=== PATIENT | female | born 1985 | race African-American/Black ===

== ENCOUNTER 2016-07-23 20:41 | Emergency (ER) | payer MEDICAID ==
[2016-07-23] MEDS ORDERED: ACETAMINOPHEN 325 MG TABLET PO ONE (21:40)
--- NOTE | 2016-07-23 21:41 | ER Document Report ---
ED Medical Screen (RME) - General Stated Complaint: CHEST PAIN Notes: 30 year old female, reports right sided chest pain today, also complains of right shoulder pain for over 2 months. Reports she injured her shoulder by running into a wall in May. Denies cough. Pain is sharp. Denies smoking. On menstrual cycle now. TRAVEL OUTSIDE OF THE [place] IN LAST 30 DAYS: No - Related Data Allergies/Adverse Reactions: ibuprofen Allergy (Verified 11/17/15 02:17) Generalized Itching Past Medical History - Immunizations Hx Diphtheria, Pertussis, Tetanus Vaccination: Yes Physical Exam - Respiratory Respiratory status: No respiratory distress. No: Labored, Tachypnea Breath sounds: Normal. No: Decreased air movement, Rales, Rhonchi, Stridor, Wheezing
--- NOTE | 2016-07-24 00:59 | ER Document Report ---
ED Extremity Problem, Upper - General Mode of Arrival: Ambulatory Information source: Patient TRAVEL OUTSIDE OF THE [place] IN LAST 30 DAYS: No - HPI Patient complains to provider of: Pain, Right, Shoulder Onset: Other - see above Recent injury: No Associated symptoms: Chest pain/discomfort Exacerbated by: Movement Similar symptoms previously: Yes <YAN CURRAN - Last Filed: 07/24/16 03:59> <ANAI MONROE - Last Filed: 07/24/16 06:19> - General Chief Complaint: Chest Pain Stated Complaint: CHEST PAIN Notes: Patient is a 30-year-old female that presents to the emergency department today with complaints of right shoulder pain and chest pain. Patient states she has had right shoulder pain for approximately 1 year since an accident where she injured the right shoulder. 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 Patient states she is left handed. Patient states she has noticed that the chest pain is usually associated with her shoulder pain. ( AYN CURRAN) - Related Data Allergies/Adverse Reactions: ibuprofen Allergy (Verified 11/17/15 02:17) Generalized Itching Past Medical History - General Information source: Patient - Social History Smoking Status: Never Smoker Cigarette use (# per day): No Frequency of alcohol use: Rare Drug Abuse: None Lives with: Family Family History: Reviewed & Not Pertinent Patient has suicidal ideation: No Patient has homicidal ideation: No - Medical History Medical History: Negative Surgical Hx: Negative - Immunizations Hx Diphtheria, Pertussis, Tetanus Vaccination: Yes <YAN CURRAN - Last Filed: 07/24/16 03:59> Review of Systems - Review of Systems Constitutional: No symptoms reported EENT: No symptoms reported Cardiovascular: See HPI, Chest pain Respiratory: No symptoms reported Gastrointestinal: No symptoms reported Genitourinary: No symptoms reported Female Genitourinary: No symptoms reported Musculoskeletal: See HPI, Joint pain - right shoulder Skin: No symptoms reported Hematologic/Lymphatic: No symptoms reported Neurological/Psychological: No symptoms reported -: Yes All other systems reviewed and negative <YAN CURRAN - Last Filed: 07/24/16 03:59> Physical Exam <YAN CURRAN - Last Filed: 07/24/16 03:59> <ANAI MONROE - Last Filed: 07/24/16 06:19> - Vital signs Vitals: Temp Pulse Resp BP Pulse Ox 97.9 F 63 20 134/97 H 100 07/24/16 01:37 07/24/16 01:37 07/24/16 01:37 07/24/16 01:37 07/24/16 01:37 - Notes Notes: Physical Exam: General: Alert, appears well. HEENT: Normocephalic. Atraumatic. PERRL. Extraocular movements intact. Oropharynx clear. Neck: Supple. Respiratory: No respiratory distress. Clear and equal breath sounds bilaterally. Cardiovascular: Regular rate and rhythm. Abdominal: Obese. No distension. Extremities: Pain with internal and external rotation of right shoulder, pain with abduction up to 90. Tenderness with palpation over right supraspinatus, right pectoralis, and right trapezius musculature. Pain with palpation over acromion tip. Neurological: Normal cognition. AAOx4. Normal speech. Psychological: Normal affect. Normal Mood. Skin: Warm. Dry. Normal color. (YAN UCRRAN) Course <YAN CURRAN - Last Filed: 07/24/16 03:59> - Diagnostic Test Radiology reviewed: Reports reviewed <ANAI MONROE - Last Filed: 07/24/16 06:19> - Re-evaluation Re-evalutation: 07/24/16 Patient with rotator cuff syndrome. Will be given pain medication and sling for comfort. Given a prescription for physical therapy and is to follow-up with PMD. Stable for discharge. Understands agrees with plan. Advised about frozen shoulder. (ANAI MONROE) - Vital Signs Vital signs: Temp Pulse Resp BP Pulse Ox 97.9 F 63 20 134/97 H 100 07/24/16 01:37 07/24/16 01:37 07/24/16 01:37 07/24/16 01:37 07/24/16 01:37 Discharge <YAN CURRAN - Last Filed: 07/24/16 03:59> <ANAI MONROE - Last Filed: 07/24/16 06:19> - Discharge Clinical Impression: Chest wall pain Rotator cuff injury Qualifiers: Encounter type: initial encounter Laterality: right Qualified Code(s): S46.001A - Unspecified injury of muscle(s) and tendon(s) of the rotator cuff of right shoulder, initial encounter Condition: Stable Disposition: HOME, SELF-CARE Instructions: Rotator Cuff Injury ([facility]), Chest Wall Pain ([facility]) Prescriptions: Tramadol HCl [Ultram 50 mg Tablet] 50 mg PO Q6HP PRN #40 tablet PRN Reason: Referrals: FABIO RODRIGUES, [Primary Care Provider] - Follow up as needed Scribe Attestation: 07/24/16 06:18 I personally performed the services described in the documentation, reviewed and edited the documentation which was dictated to the scribe in my presence, and it accurately records my words and actions. (ANAI MONROE) Scribe Documentation - Scribe Written by Concepcion:: Concepcion Patel, [id number] 07/24/2016 acting as scribe for :: Nella <YAN CURRAN - Last Filed: 07/24/16 03:59>
[2016-07-24] MEDS ORDERED: HYDROCODONE/ACETAMINOPHEN 5-325 MG 6 TAB/DSPK PO PRN (01:06)
[2016-07-24 01:39] VITALS: BP 134/97
== END 2016-07-24 01:43 | disposition home or self-care (01) ==
LOC: ER 20:41
DX: S46.011A Strain of muscle(s) and tendon(s) of the rotator cuff of right shoulder, initial encounter (principal); X58.XXXA Exposure to other specified factors, initial encounter; R07.89 Other chest pain; Z88.6 Allergy status to analgesic agent
CPT/HCPCS: 99284; 71020; J3490

== ENCOUNTER 2017-05-03 06:50 | Emergency (ER) | payer MEDICAID ==
--- NOTE | 2017-05-03 07:57 | ER Document Report ---
ED General - General Chief Complaint: Sore Throat Stated Complaint: SORE THROAT Time Seen by Provider: 05/03/17 07:37 TRAVEL OUTSIDE OF THE [place] IN LAST 30 DAYS: No - HPI Patient complains to provider of: Sore throat fevers chills Notes: Patient coming in for flulike symptoms and sore throat ongoing for the last 24 hours. Patient states last night was exposed to cold patient states she had 3 episodes of "shaking like a seizure". Patient states "I locked up and could not move" patient denies any sick contacts recent travel recent antibiotics. Patient is lying on her right side moaning stating she does not feel good when I am entered the examination room. However patient is no difficulty in sitting up for me to examine her. Denies actual temperature denies chest pain abdominal pain nausea vomiting diarrhea. - Related Data Allergies/Adverse Reactions: ibuprofen Allergy (Verified 05/03/17 07:05) Generalized Itching Past Medical History - Social History Smoking Status: Current Some Day Smoker Frequency of alcohol use: Social Drug Abuse: None Family History: Reviewed & Not Pertinent Patient has suicidal ideation: No Patient has homicidal ideation: No Renal/ Medical History: Denies: Hx Peritoneal Dialysis - Immunizations Hx Diphtheria, Pertussis, Tetanus Vaccination: Yes Review of Systems - Review of Systems Constitutional: Chills, Fever EENT: Throat pain, Difficulty swallowing Cardiovascular: No symptoms reported Respiratory: No symptoms reported Gastrointestinal: No symptoms reported Genitourinary: No symptoms reported Female Genitourinary: No symptoms reported Musculoskeletal: No symptoms reported Skin: No symptoms reported Hematologic/Lymphatic: No symptoms reported Neurological/Psychological: No symptoms reported Physical Exam - Vital signs Vitals: Temp Pulse Resp BP Pulse Ox 98.4 F 83 20 126/80 H 96 05/03/17 07:05 05/03/17 07:05 05/03/17 07:05 05/03/17 07:05 05/03/17 07:05 Interpretation: Normal - General General appearance: Appears well, Alert - HEENT Head: Normocephalic, Atraumatic Eyes: Normal Conjunctiva: Normal Cornea: Normal Pupils: PERRL Ears: Normal External canal: Normal Tympanic membrane: Normal Sinus: Normal Nasal: Normal Mouth/Lips: Normal Pharynx: Erythema Neck: Normal - Respiratory Respiratory status: No respiratory distress Chest status: Nontender Breath sounds: Normal Chest palpation: Normal - Cardiovascular Rhythm: Regular Heart sounds: Normal auscultation Murmur: No - Abdominal Inspection: Normal Distension: No distension Bowel sounds: Normal Tenderness: Nontender Organomegaly: No organomegaly - Back Back: Normal, Nontender - Extremities General upper extremity: Normal inspection, Nontender, Normal color, Normal ROM , Normal temperature General lower extremity: Normal inspection, Nontender, Normal color, Normal ROM , Normal temperature, Normal weight bearing. No: Kat's sign - Neurological Neuro grossly intact: Yes Cognition: Normal Orientation: AAOx4 Trevor Coma Scale Eye Opening: Spontaneous [place] Coma Scale Verbal: Oriented [place] Coma Scale Motor: Obeys Commands [place] Coma Scale Total: 15 Speech: Normal Motor strength normal: LUE, RUE, LLE, RLE Sensory: Normal - Psychological Associated symptoms: Normal affect, Normal mood - Skin Skin Temperature: Warm Skin Moisture: Dry Skin Color: Normal Course - Re-evaluation Re-evalutation: 05/03/17 07:56 Slight erythema in the posterior pharynx. Will swab for flu and strep. Otherwise patient examination is consistent with a viral etiology. Educated patient to drink plenty of fluids take Tylenol Motrin for fever and pain control will wait for results swabs. 05/03/17 11:19 The patient appears non-toxic and well hydrated. There are no signs of life threatening or serious infection at this time. Patient have been instructed to return if the patient appears to be getting more seriously ill in any way. - Vital Signs Vital signs: Temp Pulse Resp BP Pulse Ox 98.4 F 83 20 126/80 H 96 05/03/17 07:05 05/03/17 07:05 05/03/17 07:05 05/03/17 07:05 05/03/17 07:05 Discharge - Discharge Clinical Impression: Viral syndrome Instructions: Viral Syndrome ([facility]) Additional Instructions: Your symptoms today are consistent with a viral infection. There is no treatment required at this time. Viruses at the room of course. He can continue to take Tylenol Motrin for your pain at home sure you are drinking plenty of fluids to stay well hydrated. Return to the ER symptoms worsen. Your testing today shows no signs of influenza or strep throat.
[2017-05-03 09:59] VITALS: BP 129/78
== END 2017-05-03 09:56 | disposition home or self-care (01) ==
LOC: ER 06:50
DX: J02.9 Acute pharyngitis, unspecified (principal); B34.9 Viral infection, unspecified; R50.9 Fever, unspecified; F17.200 Nicotine dependence, unspecified, uncomplicated; Z88.6 Allergy status to analgesic agent
CPT/HCPCS: 87070; 87804; 87880; 99283

== ENCOUNTER 2018-02-13 02:34 | Emergency (ER) | payer MEDICAID ==
[2018-02-13 02:41] VITALS: BP 141/97
[2018-02-13] MEDS ORDERED: NORMAL SALINE 1000 ML 1,000 ML IV ONE (03:03)
[2018-02-13] MEDS ORDERED: ONDANSETRON HCL INJ/PF 4 MG/2 ML SDV IV ONE (03:03)
--- NOTE | 2018-02-13 03:03 | ER Document Report ---
ED GI/ - General Chief Complaint: Abdominal Pain Stated Complaint: ABDOMINAL PAIN Time Seen by Provider: 02/13/18 02:56 Notes: Patient is a 32-year-old female that comes to the emergency department for chief complaint of abdominal pain, 3 episodes of vomiting, and 2 episodes of diarrhea. Nonbloody. No fever recorded but she reports some chills. No obvious sick contacts. No hematemesis or hematochezia. Denies flank pain, dysuria, chest pain. Denies any surgeries or daily medications. Denies alcohol or recreational drugs, she states. LMP within the past month. TRAVEL OUTSIDE OF THE [place] IN LAST 30 DAYS: No - Related Data Allergies/Adverse Reactions: ibuprofen Allergy (Verified 02/13/18 02:35) Generalized Itching Past Medical History - General Information source: Patient - Social History Smoking Status: Former Smoker - vapes Frequency of alcohol use: None Drug Abuse: None Lives with: Family Family History: Reviewed & Not Pertinent - Medical History Medical History: Negative Renal/ Medical History: Denies: Hx Peritoneal Dialysis Surgical Hx: Negative - Immunizations Hx Diphtheria, Pertussis, Tetanus Vaccination: Yes Review of Systems - Review of Systems Constitutional: No symptoms reported EENT: No symptoms reported Cardiovascular: No symptoms reported Respiratory: No symptoms reported Gastrointestinal: See HPI Genitourinary: No symptoms reported Female Genitourinary: No symptoms reported Musculoskeletal: No symptoms reported Skin: No symptoms reported Hematologic/Lymphatic: No symptoms reported Neurological/Psychological: No symptoms reported Physical Exam - Vital signs Vitals: Temp Pulse Resp BP Pulse Ox 97.7 F 60 23 H 141/97 H 100 02/13/18 02:39 02/13/18 02:39 02/13/18 02:39 02/13/18 02:39 02/13/18 02:39 - Notes Notes: GENERAL: Patient sluggish, sleepy, however she does not appear to be in any distress HEAD: Normocephalic, atraumatic. EYES: Pupils equal, round, and reactive to light. Extraocular movements intact. ENT: Oral mucosa moist, tongue midline. [Nares patent, no nasal septal hematoma , TM's intact.] NECK: Full range of motion. Supple. Trachea midline. LUNGS: Clear to auscultation bilaterally, no wheezes, rales, or rhonchi. No respiratory distress. HEART: Regular rate and rhythm. No murmur ABDOMEN: Patient complains with palpation of the abdomen generally, minimal tenderness noted except there is increased tenderness in the epigastric and left upper quadrant area. No guarding, rigidity, rebound tenderness. EXTREMITIES: Moves all 4 extremities spontaneously. No edema, normal radial and dorsalis pedis pulses bilaterally. No cyanosis. BACK: no cervical, thoracic, lumbar midline tenderness. No saddle anesthesia, normal distal neurovascular exam. NEUROLOGICAL: Alert and oriented x3. Normal speech. [cranial nerves II through XII grossly intact]. SKIN: Warm, dry, normal turgor. No rashes or lesions noted. Course - Re-evaluation Re-evalutation: Patient with unremarkable abdomen on exam, mild left upper quadrant tenderness, reported symptoms consistent with gastroenteritis. Minimal leukocytosis, no fever, after initial treatment Zofran patient tolerating p.o. without difficulty. Symptoms resolved. Based on reevaluation and workup I have very low suspicion of acute abdomen or bacterial infectious process. Discussed results with patient, follow-up, treatment, and return precautions. She states understanding and agreement. - Vital Signs Vital signs: Temp Pulse Resp BP Pulse Ox 97.7 F 60 23 H 141/97 H 100 02/13/18 02:39 02/13/18 02:39 02/13/18 02:39 02/13/18 02:39 02/13/18 02:39 - Laboratory Result Diagrams: 02/13/18 03:40 02/13/18 03:40 Laboratory results interpreted by me: 02/13/18 02/13/18 03:40 03:40 WBC 12.9 H RBC 5.47 H MCV 71 L MCH 22.8 L RDW 18.4 H Seg Neutrophils % 81.1 H Lymphocytes % 11.5 L Absolute Neutrophils 10.5 H Urine Blood SMALL H Urine Urobilinogen 2.0 H Urine Ascorbic Acid 40 H Discharge - Discharge Clinical Impression: Nausea vomiting and diarrhea Abdominal pain Qualifiers: Abdominal location: generalized Qualified Code(s): R10.84 - Generalized abdominal pain Condition: Stable Disposition: HOME, SELF-CARE Additional Instructions: Your evaluation is most consistent with dehydration and a viral illness called gastroenteritis. Take nausea medication as prescribed, famotidine as prescribed, drink plenty fluids, start with bland food and slowly progress. Return if you worsen including severe abdominal pain, uncontrolled vomiting, fever 100.4 or greater, or any other concerning or worsening symptoms. Prescriptions: Famotidine [Pepcid 20 mg Tablet] 20 mg PO BID #20 tablet Promethazine HCl [Phenergan 25 mg Tablet] 25 mg PO Q6H PRN #20 tablet PRN Reason: Forms: Return to School
[2018-02-13] MEDS ORDERED: ONDANSETRON ODT 4 MG TAB (6 TAB/ER DISP) PO PRN (03:36)
[2018-02-13 04:02] LABS: ABSOLUTE EOSINOPHILS # (AUTO) 0.1 10^3/uL (0.0-0.6); ABSOLUTE LYMPHOCYTES (AUTO) 1.5 10^3/uL (0.5-4.7); ABSOLUTE MONOCYTES (AUTO) 0.8 10^3/uL (0.1-1.4); ABSOLUTE NEUT (AUTO) 10.5 10^3/uL (1.7-8.2); BASOPHILS % (AUTO) 0.4 % (0-2); EOSINOPHILS % (AUTO) 0.4 % (0-6); HEMATOCRIT 38.6 % (36.0-47.0); HEMOGLOBIN 12.5 g/dL (12.0-15.5); LYMPHOCYTES % (AUTO) 11.5 % (13-45); MEAN CORPUSCULAR HEMOGLOBIN 22.8 pg (27.0-33.4); MEAN CORPUSCULAR HGB CONC 32.3 g/dL (32.0-36.0); MEAN CORPUSCULAR VOLUME 71 fl (80-97); MONOCYTES % (AUTO) 6.6 % (3-13); PLATELET COUNT 376 10^3/uL (150-450); RED BLOOD COUNT 5.47 10^6/uL (3.72-5.28); RED CELL DISTRIBUTION WIDTH 18.4 % (11.5-14.0); SEGMENTED NEUTROPHILS % (AUTO) 81.1 % (42-78); TOTAL CELLS COUNTED % (AUTO) 100 %; WHITE BLOOD COUNT 12.9 10^3/uL (4.0-10.5)
[2018-02-13 04:12] LABS: AMORPHOUS SEDIMENT,URINE TRACE /HPF; APPEARANCE,URINE CLOUDY; BILIRUBIN,URINE NEGATIVE (NEGATIVE); COLOR,URINE YELLOW; GLUCOSE, URINE NEGATIVE (NEGATIVE); KETONES,URINE NEGATIVE (NEGATIVE); LEUKOCYTE ESTERASE,URINE NEGATIVE (NEGATIVE); NITRITE,URINE NEGATIVE (NEGATIVE); PROTEIN,URINE NEGATIVE (NEGATIVE); URINE SPECIFIC GRAVITY 1.023
[2018-02-13 04:17] LABS: ALANINE AMINOTRANSFERASE 19 U/L (9-52); ALBUMIN 3.9 g/dL (3.5-5.0); ALKALINE PHOSPHATASE 65 U/L (38-126); ANION GAP 10 (5-19); ASPARTATE AMINO TRANSFERASE 14 U/L (14-36); BILIRUBIN,DIRECT 0.3 mg/dL (0.0-0.4); BILIRUBIN,TOTAL 0.3 mg/dL (0.2-1.3); BLOOD UREA NITROGEN 13 mg/dL (7-20); CALCIUM 9.5 mg/dL (8.4-10.2); CARBON DIOXIDE 27 mmol/L (22-30); CHLORIDE 104 mmol/L (98-107); GLUCOSE 99 mg/dL (75-110); LIPASE 75.7 U/L (23-300); POTASSIUM 4.2 mmol/L (3.6-5.0); SODIUM 141.1 mmol/L (137-145); TOTAL PROTEIN 7.5 g/dL (6.3-8.2)
[2018-02-13] MEDS ORDERED: SUCRALFATE 1 GM TABLET ONE (05:21)
[2018-02-13] MEDS ORDERED: KETOROLAC TROMETHAMINE INJ/PF 30 MG/1 ML SDV ONE (05:21)
[2018-02-13] MEDS ORDERED: FAMOTIDINE 20 MG TABLET ONE (05:21)
== END 2018-02-13 04:00 | disposition home or self-care (01) ==
LOC: ER 02:34
DX: R10.84 Generalized abdominal pain (principal); R11.2 Nausea with vomiting, unspecified; R19.7 Diarrhea, unspecified; F17.290 Nicotine dependence, other tobacco product, uncomplicated; D72.829 Elevated white blood cell count, unspecified
CPT/HCPCS: 99284; 96361; 96374; 36415; 83690; 85025; 81025; 80053; 81001; J2405; J7030

== ENCOUNTER 2018-07-10 13:13 | Emergency (ER) | payer MEDICAID ==
[2018-07-10 13:23] VITALS: BP 140/83
--- NOTE | 2018-07-10 13:43 | ER Document Report ---
HPI - HPI Time Seen by Provider: 07/10/18 13:30 Pain Level: Denies Notes: Patient is a 32-year-old female who presents emergency department requesting blood testing for hepatitis as patient states that a screening test may have shown that she has hepatitis. Patient states that she was in snf for short period of time about a year ago. She did get a tattoo in October which is new for her. Otherwise she denies IV drug abuse or living in group homes. She does not know of any known exposure. She is eating and drinking without difficult he. She is urinating normally and having bowel movements. Patient states that she is otherwise been healthy. No other concerns or complaints. Denies any headache, fever, neck pain, changes in vision/speech/mentation/hearing, URI, sore throat, chest pain, palpitations, syncope, cough, shortness of breath, wheeze, dyspnea, abdominal pain, nausea/vomiting/diarrhea, urinary retention, dysuria, hematuria, or rash. - ROS Systems Reviewed and Negative: Yes All other systems reviewed and negative - REPRODUCTIVE Reproductive: DENIES: : Past Medical History - Social History Smoking Status: Never Smoker Family History: Reviewed & Not Pertinent Renal/ Medical History: Denies: Hx Peritoneal Dialysis - Immunizations Hx Diphtheria, Pertussis, Tetanus Vaccination: Yes Vertical Provider Document - CONSTITUTIONAL Agree With Documented VS: Yes Notes: PHYSICAL EXAMINATION: GENERAL: Well-appearing, well-nourished and in no acute distress. HEAD: Atraumatic, normocephalic. EYES: Pupils equal round and reactive to light, extraocular movements intact, sclera anicteric, conjunctiva are normal. ENT: Nares patent and without discharge. oropharynx clear without exudates. No tonsilar hypertrophy or erythema. Moist mucous membranes. NECK: Normal range of motion, supple without lymphadenopathy LUNGS: Breath sounds clear to auscultation bilaterally and equal. No wheezes rales or rhonchi. HEART: Regular rate and rhythm without murmurs, rubs, gallops. ABDOMEN: Soft, nontender, nondistended abdomen. No guarding, no rebound. No masses appreciated. Normal bowel sounds present. No CVA tenderness bilaterally. Musculoskeletal: FROM to passive/active. Strength 5+/5. Extremities: No cyanosis, clubbing, or edema b/l. Peripheral pulses 2+. Capillary refill less than 3 seconds. NEUROLOGICAL: Cranial nerves grossly intact. Normal speech, normal gait. PSYCH: Normal mood, normal affect. SKIN: Warm, Dry, normal turgor, no rashes or lesions noted. - INFECTION CONTROL TRAVEL OUTSIDE OF THE [place] IN LAST 30 DAYS: No Course - Re-evaluation Re-evalutation: 07/10/18 13:41 Patient is an afebrile, well-hydrated 32-year-old female who presents emergency department for lab work. Vitals are acceptable. PE is otherwise unremarkable. She is nontoxic-appearing and is tolerating p.o. without difficulty. Hepatitis panel and HIV panel will be obtained. Low suspicion for any systemic emergent condition at this time. Patient to follow-up with the health department and/or her PCM in 3-5 days for possible further testing. Return to the ED with any other worsening/concerning symptoms. Patient is in agreement. - Vital Signs Vital signs: Temp Pulse Resp BP Pulse Ox 87 18 140/83 H 100 07/10/18 13:22 07/10/18 13:22 07/10/18 13:22 07/10/18 13:22 Discharge - Discharge Clinical Impression: Encounter for blood test Condition: Stable Disposition: HOME, SELF-CARE Additional Instructions: Checking with the health department and/or your primary care provider in 3-5 days for further evaluation and possible you may call for your results tomorrow. Healthy diet and exercise. Return to the ED with any worsening symptoms and/or development of fever, headache, changes in behavior/mentation/vision/speech, chest pain, palpitations, syncope, shortness of breath, trouble breathing, abdominal pain, n/v/d, blood in stool/urine, loss of control of bowel/bladder, urinary retention, muscle weakness/paralysis, saddle anesthesia, numbness/tingling, or other worsening symptoms that are concerning to you. Forms: Elevated Blood Pressure [facility] - Follow up in 3-5 days
[2018-07-11 07:41] LABS: HEPATITIS A AB IGM Negative (Negative); HEPATITIS B CORE AB IGM Negative (Negative); HEPATITS B SURFACE ANTIGEN Negative (Negative)
[2018-07-11 10:01] LABS: HEPATITIS C VIRUS ANTIBODY 0.2 s/co ratio (0.0-0.9)
== END 2018-07-10 14:29 | disposition home or self-care (01) ==
LOC: ER 13:13
DX: Z11.59 Encounter for screening for other viral diseases (principal); Z11.4 Encounter for screening for human immunodeficiency virus [HIV]
CPT/HCPCS: 36415; 80074; 86701; 99283

== ENCOUNTER 2018-12-14 01:19 | Emergency (ER) | payer MEDICAID ==
[2018-12-14 01:40] VITALS: BP 129/88
== END 2018-12-14 03:30 | disposition left against medical advice (07) ==
LOC: ER 01:19
DX: Z53.21 Procedure and treatment not carried out due to patient leaving prior to being seen by health care provider (principal); R53.1 Weakness